=== PATIENT | female | born 1960 | race Two or more races ===

== ENCOUNTER 2018-03-10 13:21 | Emergency (ER) | payer OTHER ==
[~2018-03-10] VITALS: Ht 160 cm; Wt 62.1 kg
[~2018-03-10 13:21] MED LIST: BENTYL10 MG/ML
[2018-03-10] MEDS ORDERED: CYMBALTA30 MG (13:51)
[2018-03-10] MEDS ORDERED: ELAVIL (13:51)
[2018-03-10] MEDS ORDERED: SUBOXONE 8 MG-1 EACH (13:52)
== END 2018-03-10 18:59 | disposition home or self-care (01) ==
LOC: ER 13:21
DX: R10.2 Pelvic and perineal pain (principal)

== ENCOUNTER 2018-03-17 13:57 | Outpatient (CLI) | payer OTHER ==
[~2018-03-17 13:57] MED LIST changes: +CYMBALTA30 MG; +ELAVIL; +SUBOXONE 8 MG-1 EACH
== END 2018-03-17 17:00 | disposition home or self-care (01) ==
LOC: MAMO-SONO 13:57
DX: N64.59 Other signs and symptoms in breast (principal); Z12.31 Encounter for screening mammogram for malignant neoplasm of breast; N30.01 Acute cystitis with hematuria; R10.2 Pelvic and perineal pain

== ENCOUNTER 2018-05-14 09:45 | Outpatient (CLI) | payer OTHER | END 2018-05-14 10:08 | disposition home or self-care (01) | LOC: TOM 09:45 | DX: R10.2 Pelvic and perineal pain (principal); R10.84 Generalized abdominal pain ==

== ENCOUNTER 2018-06-05 13:43 | Outpatient (CLI) | payer OTHER | END 2018-06-05 14:06 | disposition home or self-care (01) | LOC: NUCLEAR 13:43 | DX: M81.0 Age-related osteoporosis without current pathological fracture (principal); M89.9 Disorder of bone, unspecified ==

== ENCOUNTER 2018-12-24 14:26 | Outpatient (CLI) | payer OTHER | END 2018-12-24 14:33 | disposition home or self-care (01) | LOC: RAD 14:26 | DX: M19.079 Primary osteoarthritis, unspecified ankle and foot (principal) ==

== ENCOUNTER 2019-01-12 13:14 | Outpatient (CLI) | payer OTHER | END 2019-01-12 14:00 | disposition home or self-care (01) | LOC: MRI 13:14 | DX: M54.5 Low back pain (principal); M79.671 Pain in right foot | CPT/HCPCS: 72148 ==

== ENCOUNTER → 2019-01-12 | Outpatient (CLI) | payer OTHER | END | disposition home or self-care (01) | LOC: NUCLEAR 11:00 | DX: I73.9 Peripheral vascular disease, unspecified (principal); I87.2 Venous insufficiency (chronic) (peripheral) ==

== ENCOUNTER 2019-01-13 10:34 | Outpatient (CLI) | payer OTHER | END 2019-01-13 10:42 | disposition home or self-care (01) | LOC: NUCLEAR 10:34 | DX: I73.9 Peripheral vascular disease, unspecified (principal); I87.2 Venous insufficiency (chronic) (peripheral) ==

== ENCOUNTER 2020-01-10 14:43 | Emergency (ER) | payer OTHER ==
[~2020-01-10] VITALS: Ht 157.5 cm; Wt 78.0 kg
== END 2020-01-10 17:03 | disposition home or self-care (01) ==
LOC: ER 14:43
DX: R59.0 Localized enlarged lymph nodes (principal)

== ENCOUNTER 2022-04-03 12:09 | Outpatient (CLI) | payer OTHER | END 2022-04-03 12:22 | disposition home or self-care (01) | LOC: MAMO-SONO 12:09 | PROVIDERS: ATTEND Obstetrics & Gynecology Gynecology | DX: Z12.31 Encounter for screening mammogram for malignant neoplasm of breast (principal); R10.2 Pelvic and perineal pain; N64.59 Other signs and symptoms in breast ==

== ENCOUNTER 2022-04-03 14:05 | Outpatient (CLI) | payer OTHER | END 2022-04-03 14:08 | disposition home or self-care (01) | LOC: NUCLEAR 14:05 | PROVIDERS: ATTEND Obstetrics & Gynecology Gynecology | DX: M81.0 Age-related osteoporosis without current pathological fracture (principal); M89.9 Disorder of bone, unspecified ==

== ENCOUNTER 2022-11-29 22:05 | Emergency (ER) | payer OTHER ==
[~2022-11-29] VITALS: Ht 157.5 cm; Wt 68.0 kg
== END 2022-11-30 00:01 | disposition home or self-care (01) ==
LOC: ER 22:05
DX: S50.851A Superficial foreign body of right forearm, initial encounter (principal); X58.XXXA Exposure to other specified factors, initial encounter; Y93.89 Activity, other specified; Y92.018 Other place in single-family (private) house as the place of occurrence of the external cause; Y99.9 Unspecified external cause status; M79.7 Fibromyalgia

== ENCOUNTER 2023-01-28 12:17 | Outpatient (CLI) | payer OTHER | END 2023-01-28 12:36 | disposition home or self-care (01) | LOC: RAD 12:17 | PROVIDERS: ATTEND Family Medicine | DX: N20.0 Calculus of kidney (principal); Z72.89 Other problems related to lifestyle ==

== ENCOUNTER 2023-03-23 12:17 | Emergency (ER) | payer OTHER ==
[~2023-03-23] VITALS: Ht 154.9 cm; Wt 63.5 kg
[2023-03-23] MEDS ORDERED: METFORMIN HCL1000 M2 PO (12:30)
[2023-03-23] MEDS ORDERED: CRESTOR10 MG PO (12:30)
== END 2023-03-23 14:56 | disposition home or self-care (01) ==
LOC: ER 12:17
DX: J03.90 Acute tonsillitis, unspecified (principal); E11.9 Type 2 diabetes mellitus without complications; Z79.84 Long term (current) use of oral hypoglycemic drugs

== ENCOUNTER 2023-07-31 10:37 | Outpatient (CLI) | payer OTHER ==
[~2023-07-31 10:37] MED LIST changes: +CRESTOR10 MG PO; +METFORMIN HCL1000 M2 PO
== END 2023-07-31 11:04 | disposition home or self-care (01) ==
LOC: MAMO-SONO 10:37
PROVIDERS: ATTEND Family Medicine
DX: M46.46 Discitis, unspecified, lumbar region (principal); N60.11 Diffuse cystic mastopathy of right breast; N60.12 Diffuse cystic mastopathy of left breast; Z12.31 Encounter for screening mammogram for malignant neoplasm of breast
CPT/HCPCS: 72148

== ENCOUNTER 2023-10-27 19:20 | Emergency (ER) | payer OTHER ==
[~2023-10-27] VITALS: Ht 154.9 cm; Wt 59.0 kg
[2023-10-27 20:49] LABS: HEMATOCRIT 37.4 % (36.0-45.00); HEMOGLOBIN 12.7 g/dL (12.0-15.00); MEAN CELL VOLUME 84.6 fL (80.00-100.00); MEAN CORPUSCULAR HEMOGLOBIN 28.8 pg (27.00-32.0); MEAN CORPUSCULAR HGB CONC 34.1 g/dl (32.0-36.0); PLATELET COUNT 201 K/uL (150-450); RED BLOOD COUNT 4.42 M/uL (4.00-6.00); RED CELL DISTRIBUTION WIDTH 14.2 % (11.5-14.5)
[2023-10-27 21:07] LABS: INR 0.98; PARTIAL THROMBOPLASTIN TIME 28.5 SECONDS (22.0-34.0); PROTHROMBIN TIME 10.3 SECONDS (9.0-11.5)
[2023-10-27 21:11] LABS: BILIRUBIN TOTAL 0.45 mg/dL (0.3-1.2); CALCIUM 9.3 mg/dL (8.5-10.1); CREATININE SERUM 0.7 mg/dL (0.55-1.02); GFR 83.98; GLOBULINA 3.4 G/DL (2.4-3.5); POTASSIUM 4.34 mEq/L (3.5-5.1); TOTAL PROTEIN 7.4 gm/dL (6.4-8.2)
[2023-10-27] MEDS ORDERED: 0.9 % SODIUM CHLORIDE 1,000 ML IV ONE (21:30)
[2023-10-27] MEDS ORDERED: KETOROLAC TROMETHAMINE 30 MG VIAL IV ONE (21:30)
[2023-10-27 21:49] LABS: URINE APPEARANCE Cloudy; URINE BILIRRUBIN Negative (NEGATIVE); URINE BLOOD Negative; URINE COLOR Yellow; URINE GLUCOSE Negative (NEGATIVE); URINE LEUKOCYTE Large; URINE NITRATE Negative; URINE PROTEIN Negative (NEGATIVE); URINE UROBILINOGEN 0.2 E.U./dl
[2023-10-27 21:53] LABS: URINE EPITHELIAL CELLS 2.6 uL (0.0-38.8); URINE RBC 64.2 uL (0.0-20.8); URINE WBC 970.4 uL (0.0-23.2)
[2023-10-27 22:04] LABS: URINE BACTERIA > 9821.5 uL (0.0-1933)
== END 2023-10-28 01:04 | disposition home or self-care (01) ==
LOC: ER 19:21
PROVIDERS: General Practice
DX: N31.9 Neuromuscular dysfunction of bladder, unspecified (principal); Z20.822 Contact with and (suspected) exposure to COVID-19

== ENCOUNTER 2024-07-20 10:29 | Inpatient (IN) | payer OTHER ==
[~2024-07-20] VITALS: Ht 157.5 cm; Wt 60.3 kg
[~2024-07-20 10:29] MED LIST changes: +BETHANECHOL CHLO1 GM MC; +DICLOFENAC SOD100 GM TOP; +DICLOFENAC SODI75 MG PO; +METFORMIN HCL500 MG PO; +ZANTAC150 MG PO
--- NOTE | 2024-07-20 11:01 | NUR ---
PACIENTE ALERTA Y ORIENTADA X 3. REFIERE DESDE XUAN DOLOR ABDOMINAL.
[2024-07-20] MEDS ORDERED: RINGERS SOLUTION,LACTATED 1,000 ML IV STA (11:24)
[2024-07-20] MEDS ORDERED: MEPERIDINE HCL/PF 50 MG/ML VIAL IM STA (11:25)
[2024-07-20] MEDS ORDERED: PROMETHAZINE HCL 25 MG/ML AMPUL IM STA (11:26)
[2024-07-20 12:08] LABS: HEMATOCRIT 40.8 % (36.0-45.00); HEMOGLOBIN 13.9 g/dL (12.0-15.00); MEAN CELL VOLUME 83.6 fL (80.00-100.00); MEAN CORPUSCULAR HEMOGLOBIN 28.4 pg (27.00-32.0); PLATELET COUNT 224 K/uL (150-450); RED BLOOD COUNT 4.88 M/uL (4.00-6.00); RED CELL DISTRIBUTION WIDTH 13.9 % (11.5-14.5)
[2024-07-20 12:34] LABS: ALBUMIN 3.6 gm/dL (3.4-5.0); BILIRUBIN TOTAL 0.5 mg/dL (0.3-1.2); BILIRUBIN,CONJUGATED 0.16 mg/dL (0.0-0.2); BILIRUBIN,UNCONJUGATED 0.34 mg/dL (0.0-0.6); CALCIUM 9.5 mg/dL (8.5-10.1); CREATININE SERUM 0.78 mg/dL (0.55-1.02); GFR 74.12; POTASSIUM 4.73 mEq/L (3.5-5.1); TOTAL PROTEIN 7.4 gm/dL (6.4-8.2)
--- NOTE | 2024-07-20 13:37 | NUR ---
PTE EVALUADA POR EL LUPE ROJAS QUIEN ORDENA TRATAMIENTO LA CUAL SE EJECUTA, SE MANTIENE BAJO OBSERVACION.
[2024-07-20 16:32] LABS: URINE APPEARANCE Cloudy; URINE BILIRRUBIN Negative (NEGATIVE); URINE BLOOD Small; URINE COLOR Yellow; URINE GLUCOSE Negative (NEGATIVE); URINE KETONE Negative (NEGATIVE); URINE LEUKOCYTE Large; URINE NITRATE Negative; URINE PROTEIN Negative (NEGATIVE); URINE UROBILINOGEN 0.2 E.U./dl
[2024-07-20 16:33] LABS: URINE BACTERIA 6646.4 uL (0.0-1933); URINE EPITHELIAL CELLS 8.6 uL (0.0-38.8); URINE RBC 2.5 uL (0.0-20.8); URINE WBC 3850.1 uL (0.0-23.2)
[2024-07-20 16:34] LABS: URINE CAST 0.15 uL (0.0-1.40)
[2024-07-20] MEDS ORDERED: KETOROLAC TROMETHAMINE 30 MG VIAL IU ONE (17:45)
[2024-07-20] MEDS ORDERED: 0.9 % SODIUM CHLORIDE 1,000 ML IV SCH (18:15)
[2024-07-20] MEDS ORDERED: CEFTRIAXONE SODIUM 2,000 MG in 0.9 % SODIUM CHLORIDE 100 ML IV SCH (18:21)
[2024-07-20] MEDS ORDERED: ONDANSETRON HCL 4 MG in 0.9 % SODIUM CHLORIDE 50 ML IV PRN (18:30)
[2024-07-20] MEDS ORDERED: MORPHINE SULFATE 4 MG/ML CARTRIDGE IV PRN (18:30)
[2024-07-20] MEDS ORDERED: ACETAMINOPHEN 500 MG GEL..CAP PO PRN (18:30)
[2024-07-20] MEDS ORDERED: MORPHINE SULFATE 4 MG/ML VIAL IV SCH (20:00)
[2024-07-20 20:03] LABS: INR 1.02; PARTIAL THROMBOPLASTIN TIME 27.6 SECONDS (22.0-34.0); PROTHROMBIN TIME 11.1 SECONDS (9.0-11.5)
[2024-07-20 21:43] VITALS: BP 112/72
[2024-07-21] MEDS ORDERED: METRONIDAZOLE/SODIUM CHLORIDE 100 ML IV SCH (01:00)
[2024-07-21 02:13] VITALS: BP 118/76; O2SAT 96
[2024-07-21 07:42] LABS: CHOL HDL RATIO 2.8 (0-5.0); TSH 0.685 uIU/mL (0.358-3.74)
[2024-07-21] MEDS ORDERED: ENOXAPARIN SODIUM 40 MG/0.4 ML SYRINGE SUBCUTANEO SCH (09:00)
[2024-07-21] MEDS ORDERED: PANTOPRAZOLE SODIUM 40 MG/VIAL VIAL IV SCH (09:00)
[2024-07-21 09:22] VITALS: BP 102/52; BP 133/84; O2SAT 96; O2SAT 98
[2024-07-21 17:35] VITALS: BP 119/69
[2024-07-22 02:50] VITALS: BP 108/62; O2SAT 94
[2024-07-22 19:40] VITALS: BP 124/66; O2SAT 96
[2024-07-22] MEDS ORDERED: MORPHINE SULFATE 4 MG/ML CARTRIDGE IV PRN (20:15)
[2024-07-23] VITALS: BP 118/59; O2SAT 100
[2024-07-23] MEDS ORDERED: AMINO ACIDS 4.25%/DEXTROSE 10% 2,000 ML CENTRAL SCH (05:00)
[2024-07-23 08:32] VITALS: BP 120/66; O2SAT 99
[2024-07-23 09:02] LABS: HEMATOCRIT 36.5 % (36.0-45.00); HEMOGLOBIN 12.3 g/dL (12.0-15.00); MEAN CELL VOLUME 84.2 fL (80.00-100.00); MEAN CORPUSCULAR HEMOGLOBIN 28.5 pg (27.00-32.0); MEAN CORPUSCULAR HGB CONC 33.8 g/dl (32.0-36.0); PLATELET COUNT 212 K/uL (150-450); RED BLOOD COUNT 4.33 M/uL (4.00-6.00); RED CELL DISTRIBUTION WIDTH 13.3 % (11.5-14.5)
[2024-07-23 10:16] LABS: ALBUMIN 3.1 gm/dL (3.4-5.0); BILIRUBIN TOTAL 0.42 mg/dL (0.3-1.2); CALCIUM 8.7 mg/dL (8.5-10.1); CHOL HDL RATIO 2.9 (0-5.0); CREATININE SERUM 0.61 mg/dL (0.55-1.02); GFR 98.13; GLOBULINA 2.7 G/DL (2.4-3.5); POTASSIUM 3.87 mEq/L (3.5-5.1); TOTAL PROTEIN 5.8 gm/dL (6.4-8.2)
[2024-07-23 15:56] LABS: PH,URINE 5.5 (5.0-8.0); URINE APPEARANCE Clear; URINE BILIRRUBIN Negative (NEGATIVE); URINE BLOOD Negative; URINE COLOR Yellow; URINE GLUCOSE Negative (NEGATIVE); URINE KETONE 15 (NEGATIVE); URINE LEUKOCYTE Negative; URINE NITRATE Negative; URINE PROTEIN Negative (NEGATIVE); URINE UROBILINOGEN 0.2 E.U./dl
[2024-07-23 16:00] LABS: URINE EPITHELIAL CELLS 20.8 uL (0.0-38.8); URINE WBC 11.8 uL (0.0-23.2)
[2024-07-23 16:15] LABS: URINE RBC 1.9 uL (0.0-20.8)
[2024-07-23] MEDS ORDERED: AMINO ACIDS 4.25%/DEXTROSE 10% 1,000 ML CENTRAL SCH (17:00)
[2024-07-23 18:24] VITALS: BP 133/74; O2SAT 95
[2024-07-23 21:09] LABS: CALCIUM 9.4 mg/dL (8.5-10.1); CHOL HDL RATIO 2.9 (0-5.0); CREATININE SERUM 0.58 mg/dL (0.55-1.02); GFR 104.01; POTASSIUM 4.24 mEq/L (3.5-5.1)
[2024-07-24 02:05] VITALS: BP 107/73; O2SAT 97
[2024-07-24 07:38] LABS: C-REACTIVE PROTEIN 0.85 MG/DL (0.00-0.29)
[2024-07-24 09:50] VITALS: BP 124/52; O2SAT 99
[2024-07-24 17:21] VITALS: BP 133/76; O2SAT 95
[2024-07-24] MEDS ORDERED: SIMETHICONE 125 MG CAPSULE PO SCH (21:24)
[2024-07-24] MEDS ORDERED: MORPHINE SULFATE 4 MG/ML CARTRIDGE IV PRN (22:30)
[2024-07-25 01:01] VITALS: BP 153/64; O2SAT 96
[2024-07-25 07:22] LABS: AMYLASE 39 U/L (25-115); LIPASE 58 U/L (13-75)
[2024-07-25 10:31] VITALS: BP 117/68; O2SAT 97
[2024-07-25 17:49] VITALS: BP 160/77; O2SAT 98
[2024-07-26 01:42] VITALS: BP 114/67; O2SAT 99
[2024-07-26 02:30] LABS: PH,URINE 6.5 (5.0-8.0); URINE APPEARANCE Clear; URINE BILIRRUBIN Negative (NEGATIVE); URINE BLOOD Negative; URINE COLOR Yellow; URINE KETONE Negative (NEGATIVE); URINE LEUKOCYTE Negative; URINE NITRATE Negative; URINE PROTEIN Negative (NEGATIVE); URINE UROBILINOGEN 0.2 E.U./dl
[2024-07-26 02:33] LABS: URINE RBC 4.2 uL (0.0-20.8); URINE WBC 7.2 uL (0.0-23.2)
[2024-07-26 02:37] LABS: URINE GLUCOSE 250 MG/DL (NEGATIVE)
[2024-07-26 06:09] LABS: HEMATOCRIT 35.5 % (36.0-45.00); HEMOGLOBIN 11.8 g/dL (12.0-15.00); MEAN CELL VOLUME 83.4 fL (80.00-100.00); MEAN CORPUSCULAR HEMOGLOBIN 27.8 pg (27.00-32.0); MEAN CORPUSCULAR HGB CONC 33.3 g/dl (32.0-36.0); PLATELET COUNT 201 K/uL (150-450); RED BLOOD COUNT 4.25 M/uL (4.00-6.00); RED CELL DISTRIBUTION WIDTH 13.1 % (11.5-14.5)
[2024-07-26 06:15] LABS: INR 1.07; PARTIAL THROMBOPLASTIN TIME 26.6 SECONDS (22.0-34.0); PROTHROMBIN TIME 11.6 SECONDS (9.0-11.5)
[2024-07-26 06:41] LABS: ALBUMIN 3.3 gm/dL (3.4-5.0); ALKALINE PHOSPHATASE 59 U/L (50-136); ALT/SGPT 25 U/L (12-78); ANION GAP 10 (10.0-20.0); AST/SGOT 27 U/L (15-37); BILIRUBIN,CONJUGATED < 0.10 mg/dL (0.0-0.2); BLOOD UREA NITROGEN 16 mg/dL (7-18); BUN CREA RATIO 32 (7.0-25.0); CALCIUM 9.3 mg/dL (8.5-10.1); CARBON DIOXIDE 26 mEq/L (21-32); CHLORIDE 110 mmol/L (98-107); CHOL HDL RATIO 3.6 (0-5.0); CHOLESTEROL 120 mg/dL (0-200); GFR 123.44; GLOBULINA 2.8 G/DL (2.4-3.5); HDL 33 mg/dl (40-60); LDL 61 mg/dl (0-130); OSMOLALITY SERUM 292 MOSM/KG (275-295); POTASSIUM 3.38 mEq/L (3.5-5.1); SODIUM 143 mmol/L (136-145); TOTAL IRON BINDING CAPACITY 260 ug/dl (250-450); TOTAL PROTEIN 6.1 gm/dL (6.4-8.2); TRIGLYCERIDES 130 mg/dL (0-150); VLDL 26 (0-39)
[2024-07-26 06:47] LABS: GLUCOSE FASTING 200 mg/dL (65-100)
[2024-07-26 09:06] VITALS: BP 147/74; O2SAT 98
[2024-07-26 12:14] LABS: UREA CLEARANCE 33.2 ML/MIN
[2024-07-26 18:52] VITALS: BP 148/57
[2024-07-27 01:45] VITALS: BP 130/72; O2SAT 97
[2024-07-27 09:14] VITALS: BP 120/68; O2SAT 100
[2024-07-27 18:19] VITALS: BP 173/75
[2024-07-28 03:01] VITALS: BP 128/59; O2SAT 97
[2024-07-28 07:20] LABS: HEMATOCRIT 36.9 % (36.0-45.00); HEMOGLOBIN 12.4 g/dL (12.0-15.00); MEAN CELL VOLUME 83.1 fL (80.00-100.00); MEAN CORPUSCULAR HEMOGLOBIN 27.9 pg (27.00-32.0); MEAN CORPUSCULAR HGB CONC 33.6 g/dl (32.0-36.0); PLATELET COUNT 193 K/uL (150-450); RED BLOOD COUNT 4.44 M/uL (4.00-6.00); RED CELL DISTRIBUTION WIDTH 13.1 % (11.5-14.5)
[2024-07-28 08:15] LABS: ALBUMIN 3.1 gm/dL (3.4-5.0); ALKALINE PHOSPHATASE 62 U/L (50-136); ALT/SGPT 28 U/L (12-78); ANION GAP 7 (10.0-20.0); AST/SGOT 17 U/L (15-37); BILIRUBIN TOTAL 0.27 mg/dL (0.3-1.2); BLOOD UREA NITROGEN 16 mg/dL (7-18); BUN CREA RATIO 25 (7.0-25.0); CALCIUM 9.3 mg/dL (8.5-10.1); CARBON DIOXIDE 33 mEq/L (21-32); CHLORIDE 111 mmol/L (98-107); CREATININE SERUM 0.64 mg/dL (0.55-1.02); GFR 92.84; GLOBULINA 2.6 G/DL (2.4-3.5); GLUCOSE FASTING 112 mg/dL (65-100); OSMOLALITY SERUM 294 MOSM/KG (275-295); POTASSIUM 4.01 mEq/L (3.5-5.1); SODIUM 147 mmol/L (136-145); TOTAL PROTEIN 5.7 gm/dL (6.4-8.2)
[2024-07-28 08:19] LABS: C-REACTIVE PROTEIN < 0.29 MG/DL (0.00-0.29)
[2024-07-28 09:04] VITALS: BP 126/73; O2SAT 99
[2024-07-28 18:20] VITALS: BP 150/74; O2SAT 99
[2024-07-29 03:05] VITALS: BP 128/71; O2SAT 96
[2024-07-29 08:46] VITALS: BP 152/75; O2SAT 99
[2024-07-30] MEDS ORDERED: PANTOPRAZOLE SODIUM 40 MG TABLET.DR PO SCH (09:00)
== END 2024-07-29 18:10 | disposition home or self-care (01) | DRG 439 ==
LOC: ER 10:31 → MEDI 19:05 → MEDJ 19:05
PROVIDERS: General Practice; Internal Medicine Infectious Disease; ADMIT Internal Medicine; ATTEND Internal Medicine
PROC: BW40ZZZ Ultrasonography of Abdomen (ICD-10-PCS; 2024-07-20)
PROC: BW21ZZZ Computerized Tomography (CT Scan) of Abdomen and Pelvis (ICD-10-PCS; 2024-07-20)
PROC: 02HV33Z Insertion of Infusion Device into Superior Vena Cava, Percutaneous Approach (ICD-10-PCS; principal; 2024-07-23)
DX: K85.90 Acute pancreatitis without necrosis or infection, unspecified (principal); N13.30 Unspecified hydronephrosis; N39.0 Urinary tract infection, site not specified; N17.9 Acute kidney failure, unspecified; E78.5 Hyperlipidemia, unspecified; E11.9 Type 2 diabetes mellitus without complications; Z79.4 Long term (current) use of insulin; K21.9 Gastro-esophageal reflux disease without esophagitis

== ENCOUNTER 2025-01-10 08:49 | Outpatient (CLI) | payer OTHER | END 2025-01-11 08:51 | disposition home or self-care (01) | LOC: RAD 08:49 | PROVIDERS: ATTEND Family Medicine | DX: R07.89 Other chest pain (principal); N20.0 Calculus of kidney ==

== ENCOUNTER 2025-05-31 15:51 | Inpatient (IN) | payer OTHER ==
[~2025-05-31] VITALS: Ht 157.5 cm; Wt 68.5 kg
[2025-05-31] MEDS ORDERED: TAMS0.4C PO (15:57)
--- NOTE | 2025-05-31 16:06 | NUR ---
SE RECIBE PTE ALERTA Y ORIENTADA X3 REFIERE QUE TIENE FLANK PAIN CON SANGARDO. SE MIDEN S/V Y SE UBICA EN CAMA 9 CON BARANDAS ELEVADAS.
[2025-05-31] MEDS ORDERED: ONDANSETRON HCL 2 MG/ML VIAL IV ONE (18:00)
[2025-05-31] MEDS ORDERED: KETOROLAC TROMETHAMINE 30 MG VIAL IV ONE (18:00)
[2025-05-31] MEDS ORDERED: LACTOBACILLUS ACIDOPHILUS 1 CAP CAP PO ONE ×2 (18:00→18:13)
[2025-05-31] MEDS ORDERED: FAMOTIDINE/PF 20 MG/2 ML VIAL IV ONE (18:00)
[2025-05-31] MEDS ORDERED: 0.9 % SODIUM CHLORIDE 500 ML IV SCH (18:00)
[2025-05-31] MEDS ORDERED: CEFTRIAXONE SODIUM 2,000 MG VIAL IV ONE (18:00)
[2025-05-31] MEDS ORDERED: KETOROLAC TROMETHAMINE 30 MG VIAL ONE (18:12)
[2025-05-31] MEDS ORDERED: CEFTRIAXONE SODIUM 2,000 MG VIAL ONE (18:13)
[2025-05-31] MEDS ORDERED: ONDANSETRON HCL 2 MG/ML VIAL ONE (18:13)
[2025-05-31] MEDS ORDERED: FAMOTIDINE/PF 20 MG/2 ML VIAL ONE (18:14)
[2025-05-31 19:04] LABS: BASO % 0.5 % (0.1-1.2); EOS # 0.09 (0.04-0.54); EOS % 1.0 % (0.7-7.0); LYMPH # 2.13 (1.18-3.74); LYMPH % 24.6 % (19.3-53.1); MEAN PLATELET VOLUME 10.80 fl (9.4-12.4); MONO # 0.61 (0.24-0.82); MONO % 7.0 % (4.7-12.5); NEUT # 5.75 (1.56-6.13); NEUT % 66.4 % (34.0-71.1); RED CELL DISTRIBUTION WIDTH 13.2 % (11.6-14.4)
[2025-05-31 19:06] LABS: ERYTHROCYTE SEDIMENTATION RATE 9 mm/hr (0-30)
[2025-05-31 19:39] LABS: INR < 0.93
[2025-05-31 19:54] LABS: ALT/SGPT 19.0 U/L (12-78); AST/SGOT 9.0 U/L (15-37); BILIRUBIN TOTAL 0.21 mg/dL (0.3-1.2); BUN CREA RATIO 15.0 (7.0-25.0); CREATININE SERUM 0.98 mg/dL (0.55-1.02); GFR 56.78; GLOBULINA 3.4 G/DL (2.4-3.5)
--- NOTE | 2025-05-31 20:00 | NUR ---
SE REALIZA LAB Y SE ADMINISTRA [place] [facility] ORDEN MEDICA BAJO MEDIDAS ASEPTICAS. SE ORIENTA PTE QUIEN REFIERE ENTENDER Y ACEPTAR
[2025-05-31 20:02] LABS: GLUCOSE FASTING 245.0 mg/dL (65-100); OSMOLALITY SERUM 294.0 MOSM/KG (275-295)
[2025-05-31 22:33] LABS: URINE APPEARANCE Cloudy; URINE BILIRRUBIN Negative (NEGATIVE); URINE BLOOD Trace; URINE COLOR Yellow; URINE KETONE Negative (NEGATIVE); URINE LEUKOCYTE Large; URINE NITRATE Negative; URINE PROTEIN Negative (NEGATIVE); URINE UROBILINOGEN 0.2 E.U./dl
[2025-05-31 22:37] LABS: URINE BACTERIA 1655.8 uL (0.0-1933); URINE RBC 3.6 uL (0.0-20.8)
[2025-05-31 22:45] LABS: URINE CAST 0.00 uL (0.0-1.40); URINE EPITHELIAL CELLS 0.7 uL (0.0-38.8); URINE GLUCOSE >=1000 MG/DL (NEGATIVE)
[2025-05-31 22:48] LABS: URINE MUCUS SCANT
[2025-05-31 22:49] LABS: URINE WBC 1662.0 uL (0.0-23.2); URINE YEAST FEW /hpf
[2025-06-01] MEDS ORDERED: MORPHINE SULFATE 4 MG/ML CARTRIDGE IV ONE (00:15)
[2025-06-01] MEDS ORDERED: FAMOTIDINE/PF 20 MG in 0.9 % SODIUM CHLORIDE 8 ML IV PUSH SCH (00:42)
[2025-06-01] MEDS ORDERED: PHENAZOPYRIDINE HCL 100 MG TABLET PO SCH (00:43)
[2025-06-01] MEDS ORDERED: ACETAMINOPHEN 500 MG GEL..CAP PO PRN (00:45)
[2025-06-01] MEDS ORDERED: ONDANSETRON HCL 4 MG in 0.9 % SODIUM CHLORIDE 50 ML IV PRN (00:45)
[2025-06-01] MEDS ORDERED: MORPHINE SULFATE 4 MG/ML CARTRIDGE IV PRN (00:45)
[2025-06-01] MEDS ORDERED: 0.9 % SODIUM CHLORIDE 1,000 ML IV SCH (00:45)
[2025-06-01 04:30] VITALS: BP 118/55; O2SAT 98
[2025-06-01 08:53] VITALS: BP 114/64
[2025-06-01] MEDS ORDERED: ENOXAPARIN SODIUM 40 MG/0.4 ML SYRINGE SUBCUTANEO SCH (09:00)
[2025-06-01] MEDS ORDERED: CEFTRIAXONE SODIUM 2,000 MG in 0.9 % SODIUM CHLORIDE 100 ML IV SCH (09:00)
[2025-06-01 20:03] VITALS: BP 117/71
[2025-06-02 01:26] VITALS: BP 122/65; O2SAT 94
[2025-06-02 06:19] LABS: BASO % 0.7 % (0.1-1.2); EOS # 0.15 (0.04-0.54); EOS % 2.2 % (0.7-7.0); LYMPH # 1.91 (1.18-3.74); LYMPH % 27.5 % (19.3-53.1); MEAN PLATELET VOLUME 10.90 fl (9.4-12.4); MONO # 0.45 (0.24-0.82); MONO % 6.5 % (4.7-12.5); NEUT # 4.35 (1.56-6.13); NEUT % 62.7 % (34.0-71.1); RED CELL DISTRIBUTION WIDTH 12.9 % (11.6-14.4)
[2025-06-02 06:48] LABS: ALT/SGPT 16.0 U/L (12-78); AST/SGOT 15.0 U/L (15-37); BILIRUBIN TOTAL 0.27 mg/dL (0.3-1.2); BUN CREA RATIO 14.0 (7.0-25.0); CREATININE SERUM 0.69 mg/dL (0.55-1.02); GFR 85.12; GLOBULINA 2.5 G/DL (2.4-3.5); GLUCOSE FASTING 148.0 mg/dL (65-100); OSMOLALITY SERUM 287.0 MOSM/KG (275-295)
[2025-06-02] MEDS ORDERED: MORPHINE SULFATE 4 MG/ML CARTRIDGE IV PRN (08:43)
[2025-06-02 08:59] VITALS: BP 147/75; O2SAT 94
[2025-06-02] MEDS ORDERED: INSULIN LISPRO 1,000 UNIT/10 ML UNITS SUBCUTANEO PRN (13:45)
[2025-06-02] MEDS ORDERED: DEXTROSE 50 % IN WATER 0.5 G/ML DISP.SYRIN IV PRN (13:45)
[2025-06-02 15:13] LABS: URINE APPEARANCE Clear; URINE BILIRRUBIN Negative (NEGATIVE); URINE COLOR Yellow; URINE KETONE Negative (NEGATIVE); URINE LEUKOCYTE Negative; URINE NITRATE Negative; URINE PROTEIN Trace (NEGATIVE); URINE UROBILINOGEN 0.2 E.U./dl
[2025-06-02 15:16] LABS: URINE BACTERIA 20.3 uL (0.0-1933); URINE EPITHELIAL CELLS 1.5 uL (0.0-38.8); URINE RBC 65.2 uL (0.0-20.8); URINE WBC 28.6 uL (0.0-23.2)
[2025-06-02 15:39] LABS: URINE CAST 0.00 uL (0.0-1.40); URINE GLUCOSE 250 MG/DL (NEGATIVE)
[2025-06-02 15:40] LABS: URINE BLOOD Traces
[2025-06-02 15:41] LABS: URINE MUCUS SCANT; URINE YEAST FEW /hpf
[2025-06-02 19:03] VITALS: BP 138/61
[2025-06-02] MEDS ORDERED: FAMOTIDINE/PF 20 MG in 0.9 % SODIUM CHLORIDE 8 ML IV PUSH SCH (21:00)
[2025-06-03 02:14] VITALS: BP 135/59; O2SAT 96
[2025-06-03] MEDS ORDERED: BARIUM SULFATE 450 ML ORAL.SUSP PO STA (06:39)
[2025-06-03 09:56] VITALS: BP 151/72; O2SAT 96
[2025-06-03] MEDS ORDERED: METHYLPREDNISOLONE SOD SUCC 40 MG VIAL IV ONE (11:00)
[2025-06-03] MEDS ORDERED: DIPHENHYDRAMINE HCL 50 MG/ML VIAL 1ML IV ONE (11:00)
[2025-06-03 11:37] LABS: ob NEGATIVE (NEGATIVE)
[2025-06-03 18:37] VITALS: BP 150/72; O2SAT 96
[2025-06-03] MEDS ORDERED: LACTULOSE 20 G/30 ML BLIST.PACK PO STA (21:07)
[2025-06-04 01:36] VITALS: BP 109/62; O2SAT 97
[2025-06-04 08:07] LABS: ALT/SGPT 24 U/L (12-78); AST/SGOT 16 U/L (15-37); BILIRUBIN TOTAL 0.35 mg/dL (0.3-1.2); BUN CREA RATIO 20 (7.0-25.0); CREATININE SERUM 0.82 mg/dL (0.55-1.02); GFR 69.75; GLOBULINA 3.4 G/DL (2.4-3.5); GLUCOSE FASTING 178 mg/dL (65-100); OSMOLALITY SERUM 285 MOSM/KG (275-295)
[2025-06-04] MEDS ORDERED: LACTULOSE 20 G/30 ML BLIST.PACK PO SCH (09:00)
[2025-06-04 10:08] VITALS: BP 112/65; O2SAT 96
[2025-06-04 12:40] LABS: BASO % 0.2 % (0.1-1.2); EOS # 0.03 (0.04-0.54); EOS % 0.2 % (0.7-7.0); LYMPH # 2.18 (1.18-3.74); LYMPH % 16.1 % (19.3-53.1); MEAN PLATELET VOLUME 11.20 fl (9.4-12.4); MONO # 0.94 (0.24-0.82); MONO % 7.0 % (4.7-12.5); NEUT # 10.28 (1.56-6.13); NEUT % 76.1 % (34.0-71.1); RED CELL DISTRIBUTION WIDTH 12.6 % (11.6-14.4)
[2025-06-04] MEDS ORDERED: TAMSULOSIN HCL 0.4 MG CAP PO SCH (17:00)
[2025-06-04] MEDS ORDERED: FLUCONAZOLE IN NACL,ISO-OSM 200 MG/100 ML PIGGYBAG IV NR (17:00)
[2025-06-04 17:21] VITALS: BP 140/65; O2SAT 96
[2025-06-05 02:07] VITALS: BP 113/61; O2SAT 96
[2025-06-05 09:33] VITALS: BP 123/61; O2SAT 97
[2025-06-05] MEDS ORDERED: FLUCONAZOLE IN NACL,ISO-OSM 50 ML IV SCH (12:00)
[2025-06-05] MEDS ORDERED: FLUCONAZOLE IN NACL,ISO-OSM 2 MG/ML ML IV SCH (17:00)
[2025-06-05 17:33] VITALS: BP 125/67; O2SAT 96
[2025-06-06 03:12] VITALS: BP 101/47; O2SAT 95
[2025-06-06] MEDS ORDERED: INSULIN GLARGINE,HUM.REC.ANLOG 1,000 UNITS/10 ML UNITS SUBCUTANEO SCH (09:00)
[2025-06-06 09:20] VITALS: BP 95/59; O2SAT 98
[2025-06-06] MEDS ORDERED: KETOROLAC TROMETHAMINE 30 MG VIAL IM STA (12:56)
[2025-06-06] MEDS ORDERED: MORPHINE SULFATE 4 MG/ML CARTRIDGE IV PRN (15:00)
[2025-06-06] MEDS ORDERED: VANCOMYCIN HCL 1,000 MG VIAL IV SCH (17:00)
[2025-06-06 17:55] VITALS: BP 120/70
[2025-06-07 01:30] VITALS: BP 130/64; O2SAT 98
[2025-06-07 09:28] VITALS: BP 99/62; O2SAT 96
[2025-06-07] MEDS ORDERED: NORFLEX100MG PO (17:18)
[2025-06-07] MEDS ORDERED: KETO10TA2 PO (17:18)
[2025-06-07] MEDS ORDERED: LACTULOSE10 GM/152 PO (17:18)
== END 2025-06-07 17:28 | disposition home or self-care (01) | DRG 690 ==
LOC: ER 15:51 → MEDI 06-01 00:43 → MEDJ 06-01 00:43
PROVIDERS: Internal Medicine Infectious Disease; ADMIT Internal Medicine; ATTEND Internal Medicine
PROC: BW21ZZZ Computerized Tomography (CT Scan) of Abdomen and Pelvis (ICD-10-PCS; principal; 2025-05-31)
PROC: BW21ZZZ Computerized Tomography (CT Scan) of Abdomen and Pelvis (ICD-10-PCS; 2025-06-03)
DX: N39.0 Urinary tract infection, site not specified (principal); N13.30 Unspecified hydronephrosis; E78.5 Hyperlipidemia, unspecified; N31.9 Neuromuscular dysfunction of bladder, unspecified; R33.9 Retention of urine, unspecified; M06.9 Rheumatoid arthritis, unspecified; R10.20 Pelvic and perineal pain unspecified side; Z78.9 Other specified health status